=== PATIENT | male | born 1975 | race Caucasian/White ===

== ENCOUNTER 2017-07-14 10:17 | Emergency (ER) | payer OTHER ==
[~2017-07-14] VITALS: Wt 68.0 kg
[~2017-07-14 10:17] MED LIST: AVPAK AZITHROM250 MG PO
[2017-07-14] MEDS ORDERED: CEPHALEXIN500 M1 PO (11:13)
== END 2017-07-14 11:43 | disposition home or self-care (01) ==
LOC: ED 10:17
DX: L72.3 Sebaceous cyst (principal); L02.01 Cutaneous abscess of face; F17.200 Nicotine dependence, unspecified, uncomplicated; Z79.899 Other long term (current) drug therapy